=== PATIENT | male | born 1945 | race Caucasian/White ===

== ENCOUNTER → 2017-10-21 | Outpatient (CLI) | payer OTHER ==
[~2017-10-21] MED LIST: ALTACE 1.25 M1.25 M1 PO; ASPIRIN81 M2 PO; AVINZA 30 MG CA30 MG PO; DICLOFENAC SODI75 MG PO; HYDROCODON-ACE1 EAC5 PO; LIMBREL 500 MG500 MG PO; METOPROLOL SUCC25 M1 PO; MIRALAX255 GM PO; NEURONTIN 300300 M1 PO; RAMIPRIL; SENNA S TABLET1 EACH PO; SIMVASTATIN80 MG PO
== END ==
LOC: M.RAD 08:11
DX: M47.816 Spondylosis without myelopathy or radiculopathy, lumbar region (principal); M48.061 Spinal stenosis, lumbar region without neurogenic claudication; M41.86 Other forms of scoliosis, lumbar region; M25.551 Pain in right hip

== ENCOUNTER → 2018-09-27 | Outpatient (CLI) | payer OTHER | LOC: M.RAD 09-21 17:40 | DX: M51.36 Other intervertebral disc degeneration, lumbar region (principal); M51.35 Other intervertebral disc degeneration, thoracolumbar region; N20.0 Calculus of kidney ==